=== PATIENT | male | born 1975 | race Caucasian/White ===

== ENCOUNTER → 2019-10-29 16:23 | Outpatient (BNVA) | payer SELFPAY | PROVIDERS: Family Provider Nurse Practitioner Family; PCP Nurse Practitioner Family; Visit Provider Internal Medicine | DX: E29.1 Testicular hypofunction (principal); I10 Essential (primary) hypertension; F41.1 Generalized anxiety disorder; K58.9 Irritable bowel syndrome, unspecified | CPT/HCPCS: 84403; G0103 ==

== ENCOUNTER → 2019-11-23 14:04 | Outpatient (BNVA) | payer SELFPAY | PROVIDERS: Family Provider Nurse Practitioner Family; PCP Internal Medicine; Visit Provider Nurse Practitioner Family | DX: R50.9 Fever, unspecified (principal) | CPT/HCPCS: 87804 ==

== ENCOUNTER → 2020-08-03 14:22 | Outpatient (BNVA) | payer SELFPAY | PROVIDERS: Family Provider Nurse Practitioner Family; PCP Internal Medicine; Visit Provider Nurse Practitioner Family | DX: Z11.59 Encounter for screening for other viral diseases (principal); Z20.828 Contact with and (suspected) exposure to other viral communicable diseases; R05 Cough | CPT/HCPCS: 87635 ==

== ENCOUNTER 2021-12-22 08:17 | Outpatient (CLI) | payer OTHER, SELFPAY ==
--- NOTE | 2021-12-22 08:45 | US_ITS ---
WS: [id number] RIGHT UPPER QUADRANT ULTRASOUND HISTORY: Evaluate subdermal firm lumps in his right abdominal wall. COMPARISON: None available. Patient has 3 palpable areas in the RIGHT abdominal wall. 2 palpable hyperechoic nodules in the subcu taneous soft tissues of the RIGHT upper abdominal wall are identified. The largest measures 1.4 x 0.5 x 1.9 cm. No increased vascularity. There is an additional nodule in the inferolateral RIGHT subcuta neous soft tissue which is nearly isoechoic to the adjacent fat and muscle measuring 1.4 x 0.4 x 1.6 cm. No increased vascularity. US/US abdomen limited [id number] IMPRESSION: Palpable nodules in the RIGHT abdominal wall are benign in appearance and proba morteza represent lipomas. No increased vascularity.
== END 2021-12-22 08:18 | disposition home or self-care (01) ==
LOC: RAD 08:19
PROVIDERS: PCP Internal Medicine; Visit Provider Internal Medicine
DX: R22.2 Localized swelling, mass and lump, trunk (principal)
CPT/HCPCS: 76705

== ENCOUNTER 2023-12-12 14:57 | Outpatient (CLI) | payer OTHER, SELFPAY ==
--- NOTE | 2023-12-12 15:03 | US_ITS ---
WS: [id number] SCROTAL ULTRASOUND EXAMINATION CLINICAL INFORMATION: LEFT TESTICULAR PAIN COMPARISON: None. FINDINGS: TESTES Normal in size and echotexture, without focal lesion. Color Doppler: Normal color Doppler flow pattern. Right testes size: 4.6 cm x 2.4 cm x 2.3 cm. Left testes size: 4.3 cm x 2.4 cm x 1.8 cm. EPIDIDYMIDES Edema in the LEFT epididymis with increased vascularity suspicious for epididymitis. Prominent associ ated tortuous LEFT side varicosities RIGHT epididymis is normal in appearance. Right epididymis size: 1.0 cm x 1.3 cm x 0.6 cm. Left epididymitis size: 0.7 cm x 1.4 cm x 0.5 cm. HYDROCELE None. VARICOCELE None. OTHER FINDINGS None. IMPRESSION: 1. Findings suspicious for LEFT epididymitis. No evidence of orchitis. No drainable fluid collection s. 2. In addition prominent tortuous varicosities along the LEFT epididymis may be an additional source of pain. Recommend urology consultation. 3. RIGHT testicle and epididymis are normal in appearance.
== END 2023-12-12 14:58 | disposition home or self-care (01) ==
PROVIDERS: PCP Internal Medicine; Visit Provider Internal Medicine
DX: N50.812 Left testicular pain (principal)
CPT/HCPCS: 76870